=== PATIENT | male | born 1970 | race Hispanic/Latino ===

== ENCOUNTER 2018-01-02 13:30 | Emergency (ER) | payer OTHER ==
[~2018-01-02] VITALS: Ht 177.8 cm; Wt 81.6 kg
--- NOTE | 2018-01-02 13:30 | NUR ---
LANGUAGE LINE: PATIENT UNABLE TO SPEAK [place]. CALLED LANGUAGE LINE. HE TOLD LANGUAGE LINE THAT HE WANTED TO GO HOME. THAT HE WAS FINE. PATIENT DID NOT KNW WHERE HE WAS, THOUGHT HE WAS IN [place]. HE DID NOT KNOW WHAT HAPPENED. HE DENIES MEDICAL OR SURGICAL HISTORY. DENIES SMOKING, DRINKING, OR DOING DRUGS. EXPLAINED TO PATIENT VIA LANGUAGE LINE THAT WE WERE GOING TO ASSESS HIM AND RUN SOME TESTS. HE VOICED UNDERSTANDING.
[2018-01-02] MEDS ORDERED: NS 1000ML 1,000 ML IV STA (13:42)
[2018-01-02 13:47] VITALS: BP 167/102
--- NOTE | 2018-01-02 13:47 | PCM.EKG ---
[facility] Test Date: 2018-01-02 Test Time: 13:40:58 Pat Name: DOUGLAS NO Department: Patient ID: [facility]-[id number] Room: Gender: M Rn Rehabilitation: RT : 1970 Requested By: HILARIO PAGE Order Number: [id number] Reading MD: Hilario PAGE Measurements Intervals [place] Rate: 137 P: 68 [place]: 134 QRS: 45 QRSD: 92 T: 59 QT: 296 QTc: 446 Interpretive Statements Sinus tachycardia Inferior infarct, age undetermined Abnormal ECG No previous ECG available for comparison Electronically Signed On 01-02-2018 21:16:07 CDT by Hilario PAGE Please click the below link to view image of tracing.
--- NOTE | 2018-01-02 13:57 | NUR ---
CT PT TAKEN TO CT VIA STRETCHER
[2018-01-02] MEDS ORDERED: NS 1000ML 1,000 ML ONE (14:01)
[2018-01-02 14:03] LABS: BASOPHIL % 0.4 % (0.0-0.2); HEMOGLOBIN 10.9 g/dL (13.9-16.3); LYMPHOCYTES # 0.5 10^3/uL (1.0-4.8); LYMPHOCYTES % 5.4 % (24.0-44.0); MEAN CELL HGB 25.7 pg (26-34); MEAN CELL HGB CONCENTRATION 31.8 g/dL (33-37); MEAN CORP VOLUME 80.9 fL (78-100); MEAN PLATELET VOLUME 10.7 fL (7.8-11.0); MONOCYTES % 11.7 % (5.0-12.0); NEUTROPHIL # 7.3 10^3/uL (1.8-7.7); NEUTROPHILS % 82.1 % (41.0-85.0); RED CELL DISTRIBUTION WIDTH 18.3 % (11.5-14.5); WHITE BLOOD CELL 8.9 10^3/uL (4.5-11.0)
[2018-01-02 14:04] LABS: BILIRUBIN,URINE NEGATIVE (NEGATIVE)
[2018-01-02 14:07] LABS: APPEARANCE,URINE SLIGHTLY HAZY (CLEAR); UA COLOR YELLOW (YELLOW); WBC,URINE 0-2 WBC/HPF (0-2)
--- NOTE | 2018-01-02 14:15 | DIREP ---
PROCEDURE:CT HEAD OR BRAIN W/O CONTRAST COMPARISON:None. INDICATIONS:AMS TECHNIQUE:CT images were created without intravenous contrast. FINDINGS: VENTRICLES:The ventricles are normal in size and configuration. CEREBRUM:Normal cerebral morphology with appropriate sims white matter differentiation. No mass, hemorrhage, midline shift or acute infarct. CEREBELLUM:Negative. BRAINSTEM:Negative. BASAL CISTERNS:Negative. HEMORRHAGE:No MASS LESION:No ACUTE INFARCT:No SKULL:Normal. SINUSES:Normal. OTHER:Moderate soft tissue swelling over the left frontotemporal scalp CONCLUSION: 1. Moderate soft tissue swelling over the left frontotemporal scalp; otherwise normal CT scan of the brain. Dictated by: Max Melendez M.D. on 01/02/2018 at 02:12 PM
--- NOTE | 2018-01-02 14:15 | DIREP ---
PROCEDURE:CHEST 1 VIEW COMPARISON:None. INDICATIONS:AMS FINDINGS: LUNGS/PLEURA:Small left lingular infiltrate. No other significant pulmonary parenchymal abnormalities. No effusions. VASCULATURE:Normal. Unremarkable pulmonary vasculature. CARDIAC:Normal. No cardiac silhouette abnormality or cardiomegaly. MEDIASTINUM:Normal. No visible mass or adenopathy. BONES:Normal. No fracture or visible bony lesion. OTHER:Negative. CONCLUSION:Small left lingular infiltrate. Otherwise no acute cardiopulmonary abnormalities. Dictated by: Philip Rojas M.D. on 01/02/2018 at 02:13 PM
[2018-01-02 14:39] LABS: ALANINE AMINOTRANSFERASE(ML) 58 U/L (12-78); ALKALINE PHOSPHATASE 77 U/L (50-136); ASPARTATE AMINO TRANSFERASE 106 U/L (0-35); CALCIUM 9.4 mg/dL (8.4-10.5); CARBON DIOXIDE 18.6 mmol/L (20.0-32); GLUCOSE 144 mg/dL (70-110)
--- NOTE | 2018-01-02 14:46 | ER.PDOC ---
General Chief Complaint: Trauma Stated Complaint: FALL Time seen by MD: 14:42 Source: patient Exam Limitations: no limitations History of Present Illness Initial Comments ALOC from falling Occurred: just prior to arrival Severity: moderate Injuries/Pain Location: head Context: Unknown Loss of Consciousness: Unsure Associated Symptoms: denies symptoms Allergies: Coded Allergies: No Known Allergies (Unverified , 01/02/18) Past Medical History Medical History: no pertinent history Surgical History: no surgical history Social History Smoking: non-smoker Alcohol Use: none Drug Use: none Review of Systems Constitutional: no symptoms reported Respiratory: no symptoms reported Cardiovascular: no symptoms reported Gastrointestinal: no symptoms reported Genitourinary: no symptoms reported All Other Systems: Reviewed and Negative Physical Exam General Appearance: No Apparent Distress, WD/WN Head: Contusions (left frontotemporal area), Swelling (left frontotemporal area ) Ears, Nose, Mouth, Throat: Hearing Grossly Normal, No Evidence of ENT Injury, No Dental Injury Neck: Non-Tender, Normal Alignment, Nexus criteria neg, Normal Inspection Cardiovascular/Respiratory: Regular Rate, Rhythm, No M/R/G, Normal Peripheral Pulses, No JVD, Normal Breath Sounds, No Respiratory Distress Gastrointestinal: Normal Bowel Sounds, No Organomegaly, No Pulsatile Mass, Non Tender, Soft Back: Normal Inspection, No CVA Tenderness, No Vertebral Tenderness Extremities: No Evidence of Injury, Normal Range of Motion, Non-Tender, No Pedal Edema 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, No Motor/Sensory Deficits, Alert, Normal Mood/Affect, Other (Disoriented to place) Skin: Normal Color, Warm/Dry [place] Coma Score Best Eye Response: (4) Open Spontaneously Best Verbal Response: (5) Oriented Best Motor Response: (6) Obeys Commands Results/Orders Results/Orders Laboratory Tests Test 01/02/18 13:55 White Blood Count 8.9 10^3/uL (4.5-11.0) Red Blood Count 4.24 10^6/uL (4.50-5.90) Hemoglobin 10.9 g/dL (13.9-16.3) Hematocrit 34.3 % (37.0-53.0) Mean Corpuscular Volume 80.9 fL (78-100) Mean Corpuscular Hemoglobin 25.7 pg (26-34) Mean Corpuscular Hemoglobin Concent 31.8 g/dL (33-37) Red Cell Distribution Width 18.3 % (11.5-14.5) Platelet Count 120 10^3/uL (150-400) Mean Platelet Volume 10.7 fL (7.8-11.0) Neutrophils (%) (Auto) 82.1 % (41.0-85.0) Lymphocytes (%) (Auto) 5.4 % (24.0-44.0) Monocytes (%) (Auto) 11.7 % (5.0-12.0) Neutrophils # (Auto) 7.3 10^3/uL (1.8-7.7) Lymphocytes # (Auto) 0.5 10^3/uL (1.0-4.8) Monocytes # (Auto) 1.0 10^3/uL (0.3-0.8) Absolute Immature Granulocyte (auto 0.04 10^3 u/L (0-2) Eosinophils % 0.0 % (0.0-5.0) Basophils % 0.4 % (0.0-0.2) Basophils # 0.0 10^3/uL (0.0-0.1) Eosinophil Count 0.0 10^3/uL (0.0-0.2) Prothrombin Time 12.4 SEC (9.8-11.9) Prothrombin Time INR (Non-Therap) 1.3 Activated Partial Thromboplast Time 21.9 SEC (24.67-30.72) Urine Collection Type VOID Urine Color YELLOW (YELLOW) Urine Appearance SLIGHTLY HAZY (CLEAR) Urine Bilirubin NEGATIVE MG/DL (NEGATIVE) Urine Ketones 50 mg/dL (NEGATIVE) Urine Specific [place] 1.020 (1.005-1.035) Urine pH 6 (5.0-6.0) Urine Protein 500 mg/dL (NEGATIVE) Urine Urobilinogen 4.0 (NEGATIVE) Urine Nitrate NEGATIVE (NEGATAIVE) Urine Leukocyte Esterase 25 /uL TRACE (NEGATIVE) Urine Blood 150 3+ (NEGATIVE) Urine RBC 2-5 RBC/HPF (NONE SEEN) Urine WBC 0-2 WBC/HPF (0-2) Urine Squamous Epithelial Cells FEW #/HPF (FEW) Urine Bacteria NONE SEEN (NONE SEEN) Urine Hyaline Casts 0-1 (NONE SEEN) Urine Coarse Granular Casts 0-2 #/LPF Urine Glucose NORMAL (NEGATIVE) Sodium Level 138 mmol/L (132-145) Potassium Level 3.5 mmol/L (3.6-5.2) Chloride Level 95.0 mmol/L (96-109) Carbon Dioxide Level 18.6 mmol/L (20.0-32) Anion Gap 27.9 Blood Urea Nitrogen 7 mg/dL (7-18) Creatinine 1.01 mg/dL (0.59-1.40) Estimated GFR () 95.0 (>/=60) BUN/Creatinine Ratio 6.0 Glucose Level 144 mg/dL (70-110) Calcium Level 9.4 mg/dL (8.4-10.5) Total Bilirubin 1.0 mg/dL (0.2-1.0) Aspartate Amino Transf (AST/SGOT) 106 U/L (0-35) Alanine Aminotransferase (ALT/SGPT) 58 U/L (12-78) Alkaline Phosphatase 77 U/L (50-136) Total Creatine Kinase 1237 U/L (39-308) Creatine Kinase MB 4.2 ng/mL (0.5-3.6) Troponin I < 0.02 ng/mL (0.00-0.05) Total Protein 9.5 g/dL (6.4-8.2) Albumin 4.4 g/dL (3.4-5.0) Globulin 5.1 Urine Opiates, Qualitative NEGATIVE ng/mL (CUT-OFF:300) Urine Methadone, Qualitative NEGATIVE ng/mL (CUT-OFF:300) Urine Amphetamine Qualitative NEGATIVE ng/mL (CUTOFF:1000) Urine Barbiturates, Qualitative NEGATIVE ng/mL (CUT-OFF:200) Urine Phencyclidine Screen NEGATIVE ng/mL (CUT-OFF:25) Urine MDMA (Ecstasy), Qualitative NEGATIVE ng/mL (CUT-OFF:300) Urine Benzodiazepines Screen NEGATIVE ng/mL (CUT-OFF:200) Urine Cocaine Qualitative NEGATIVE ng/mL (CUT-OFF:300) Ur Tetrahydrocannabinol (THC) Scrn NEGATIVE ng/mL (CUT-OFF:50) Percent Immature Gran (Cell Imm) 0.40 % (0.00-0.50) Administered Medications Medications (Trade) Dose Ordered Sig/Obey Route PRN Reason Start Time Stop Time Status Last Admin Dose Admin Sodium Chloride 1,000 ml @ 1,200 mls/hr Q50M STAT IV 01/02/18 13:42 01/02/18 14:31 DC 01/02/18 14:02 Progress Progress Spoke to the patient through an parts interpreter. Patient refused to be admitted for observation, signed and left against medical advice. He understand that leaving AMA can result in worsening condition and . EKG/XRAY/CT/US EKG Comments: Sinus tachycardia CT Comments: Soft tissue swelling left frontotemporal scalp Departure Time of Disposition: 15:02 Disposition: 07 AGAINST MEDICAL ADVICE Impression: Primary Impression: Syncope and collapse Additional Impressions: Altered mental status Qualified Codes: R41.82 - Altered mental status, unspecified Rhabdomyolysis Qualified Codes: T79.6XXA - Traumatic ischemia of muscle, initial encounter Contusion of head Qualified Codes: S00.93XA - Contusion of unspecified part of head, initial encounter Condition: Against Medical Advice Referrals: PCP,UNKNOWN (PCP) PRIMARY CARE PROVIDER Duration or Time Spent with Pa: 60 mins HILARIO PAGE MD January 02, 2018 14:46
[2018-01-02 15:00] VITALS: BP 181/96
[2018-01-02 15:10] LABS: DIFFERENTIAL COMMENT NORMAL; LYMPHOCYTE 3 % (25-36); MONOCYTE 7 % (3-9); SEGMENTED NEUTROPHILS 90 % (31-76)
--- NOTE | 2018-01-02 15:15 | NUR ---
TIM: DR. PAGE AT BEDSIDE EXPLAINING VIA LANGUAGE LINE THAT HE WANTED HIM TO STAY IN HOSPITAL FOR OBSERVATION. PATIENT STATED VIA LANGUAGE LINE THAT HIS FRIENDS WERE COMING BACK TO GET HIM IN 30 MINS TO HEAD BACK TO [place] AND HE DID NOT WANT TO STAY. AGAINST MEDICAL ADVICE FORM EXPLAINED AND HE VOICED UNDERSTANDING, SAYING HE WANTED FORM TO SIGN NOW.
== END 2018-01-02 15:12 | disposition left against medical advice (07) ==
LOC: EDBD 13:30 → ER 13:30
DX: S00.03XA Contusion of scalp, initial encounter (principal); M62.82 Rhabdomyolysis; R41.82 Altered mental status, unspecified; R55 Syncope and collapse; W19.XXXA Unspecified fall, initial encounter; Y93.89 Activity, other specified; Y92.89 Other specified places as the place of occurrence of the external cause; Y99.8 Other external cause status
CPT/HCPCS: 36415; 70450; 71045; 80053; 80307; 81000; 82550; 82553; 84484; 85025; 85610; 85730; 93005; 96360; 99285; J7030